=== PATIENT | male | born 1965 | race Two or more races ===

== ENCOUNTER 2020-01-21 14:26 | Inpatient (IN) | payer MEDICARE, OTHER ==
[~2020-01-21] VITALS: Ht 165.1 cm; Wt 81.6 kg
--- NOTE | 2020-01-21 14:35 | NUR ---
MEDIA PRODUCTION SUPPORT MANAGER NOTE- PT ADMITTED 5150 DTS. PT W DX SCHIZOPHRENIA WAS RECENTLY RELEASED FROM [facility], [place] AND FAMILY STATED HE BECAME NON MED COMPLIANT AT HOME WITH ESCALATING PARANOIA AND BEHAVIORS. RECENTLY STATED +SI. TOX SCREEN POS FOR AMPHETAMINES. ON FACE TO FACE ASSESSMENT- PT IS 64 INCHES TALL, 180 POUNDS. HE HAS NKA. PT IS ALERT ORIENTED TO SELF ONLY. CONFUSED ON TIME DATE AND PURPOSE. PT HAS CIRCUMSTANTIAL THINKING, IS GUARDED AND PARANOID. ALTHOUGH HE DENIES SI HI AH VH, PT STATES HE DOES HEAR VOICES THOUGH NOT NOW. ALSO HIS PAPERWORK STATES THAT HE HAD POS SI AND HOLD REFLECTS THIS. CURRENTLY DENIES SI. SKIN INTACT THROUGHOUT. PHOTO TAKEN FOR CHART, AYALA SMITH MD CALLED, ORDERS GIVEN AND COMPLIED WITH. UNIT ORIENTATION DONE PT RIGHTS HANDBOOK GIVEN. ID [id number] APPLIED.
--- NOTE | 2020-01-21 14:40 | NUR ---
RN NOTE- ACCU CHECK -107, MRSA SWAB DONE/ LAB NOTIFIED
[2020-01-21] MEDS ORDERED: LORA-259 PO (14:47)
[2020-01-21] MEDS ORDERED: ALBU18HF2 IH (14:47)
[2020-01-21] MEDS ORDERED: OLAN10TA3 PO (14:47)
[2020-01-21] MEDS ORDERED: POLY15DR40 EACHEYE (14:47)
[2020-01-21] MEDS ORDERED: OLAN20TA3 PO (14:47)
[2020-01-21] MEDS ORDERED: BLOOD SUGAR DIAGNOSTIC 1 EACH STRIP IN ONE (15:00)
[2020-01-21] MEDS ORDERED: ACETAMINOPHEN 325 MG TABLET PO PRN (15:00)
[2020-01-21] MEDS ORDERED: MAGNESIUM HYDROXIDE 30 ML UDC PO PRN (15:00)
--- NOTE | 2020-01-21 15:17 | NUR ---
GPS/RN ADMITTING ORDERS FROM DR SMITH RECEIVED AND CARRIED OUT. DR NOBLES MADE AWARE OF ADMISSION AND WILL SEE PT SHORTLY.
[2020-01-21 15:21] VITALS: BP 101/77
[2020-01-21 15:50] VITALS: BP 101/77
[2020-01-21] MEDS: LORAZEPAM 0.5 MG TABLET PO PRN (15:54)
[2020-01-21] MEDS ORDERED: POLYVINYL ALCOHOL 15 ML BOTTLE EACHEYE PRN (16:00)
[2020-01-21] MEDS ORDERED: ALBUTEROL FS 2.5 MG/0.5 ML VIAL.NEB NEB PRN (19:30)
[2020-01-21 20:00] VITALS: BP 130/70
--- NOTE | 2020-01-21 21:29 | NUR ---
NURSES NOTES: ASPHALT PAVING FOREMAN RECEIVED A CALL FROM RUDOLPH PERRY SISTER OF THIS PATIENT.BEFORE [employer]ING FOREMAN GAVE INFORMATION TO CALLER, ASPHALT PAVING FOREMAN ASKED PERMISSION FROM PATIENT. PATIENT AGREED THAT [employer]HALT PAVING FOREMAN SPEAK TO HIS SISTER -RUDOLPH PERRY [phone]. PER RUDOLPH, PATIENT AND JUNE PERRY (ANOTHER SISTER LISTED PERSON TO NOTIFY) ARE BOTH HOMELESS IF THEY HAVE NOT STAYED WITH HER IN HER HOUSEHOLD.PATIENT-DANIA HAS HAD MULTIPLE HOSPITALIZATIONS BECAUSE OF HIM BEING A DANGER TO HIMSELF, SOON PATIENT IS DISCHARGED TO HOME, AND PATIENT GETS TO FIND HIS WAYS AND HAVE ACCESS TO DRUGS, THAT IS WHEN PATIENT GETS ALL CONFUSED, PACING AT HOME AND NOT BEING HIS USUAL SELF. PER RUDOLPH SHE IS 70 SOMETHING YEARS OLD AND SHE IS EXPRESSING HER CONCERNS TO TAKING CARE OF THE PATIENT. ASPHALT PAVING FOREMAN THEN TOLD HER THAT SHE WILL RELAY THESE CONCERNS TO THE MEDICAL LANGUAGE SPECIALIST AND DOCTOR SO WE CAN FORMULATE A SAFE DISCHARGE PLAN FOR THE PATIENT.
[2020-01-22] MEDS: LORAZEPAM 0.5 MG TABLET PO PRN ×2 (07:55→18:56)
--- NOTE | 2020-01-22 07:55 | NUR ---
RN NOTE- PT AGITATED. ATIVAN 1 MG GIVEN
[2020-01-22 08:00] VITALS: BP 110/70
[2020-01-22 08:07] LABS: TRIGLYCERIDES 111 mg/dL (30-150)
[2020-01-22 08:08] LABS: CALCIUM, SERUM 8.3 mg/dL (8.5-10.1); CHOLESTEROL 140 mg/dL (<200); CREATININE 0.8 mg/dL (0.6-1.3); HDL CHOLESTEROL 36 mg/dL (40-60); LDL 84 mg/dL (0-99); POTASSIUM 3.8 mmol/L (3.5-5.1)
[2020-01-22 08:09] LABS: ALBUMIN 3.1 g/dL (3.4-5.0); BILIRUBIN,TOTAL 0.3 mg/dL (0.2-1.0); TOTAL PROTEIN, SERUM 6.5 g/dL (6.4-8.2)
--- NOTE | 2020-01-22 09:00 | NUR ---
RN NOTE- PT IN BED OOB IN [place] PACING AT TIMES ANXIOUS IRRITABLE. ATIVAN DECREASED SX A BIT PO INTAKE GOOD MED COMPLIANT DR PELLETIER TO SEE DENIES ALL AT PRESENT THOUGH BEHAVIORS SEEM TO POINT TO RESPONDING INTERNAL STIMULUS
[2020-01-22] MEDS: NICOTINE PATCH (21MG) 21 MG PATCH.TD24 TD SCH (10:02)
[2020-01-22] MEDS: OLANZAPINE 5 MG TABLET PO SCH (12:07)
[2020-01-22] MEDS: DIVALPROEX SODIUM 250 MG TABLET.DR PO SCH ×2 (12:07→16:40)
[2020-01-22 16:00] VITALS: BP 132/68
--- NOTE | 2020-01-22 18:57 | NUR ---
RN NOTE- AGITATION. PT C/O ANXIETY. ATIVAN 1 MG GIVEN
[2020-01-22] MEDS: OLANZAPINE 10 MG TABLET PO SCH (19:21)
[2020-01-22 19:35] VITALS: BP 119/63
[2020-01-22] MEDS: TEMAZEPAM 7.5 MG CAPSULE PO PRN (21:13)
--- NOTE | 2020-01-22 21:14 | NUR ---
GPS- RN NOTE: INSOMNIA PATIENT C/O INABILITY TO SLEEP. ADMINISTERED RESTORIL 7.5MG PO ORDERED. WILL CONTINUE TO MONITOR.
[2020-01-23 08:00] VITALS: BP 100/59
[2020-01-23] MEDS: DIVALPROEX SODIUM 250 MG TABLET.DR PO SCH ×3 (08:04→16:52)
[2020-01-23] MEDS: NICOTINE PATCH (21MG) 21 MG PATCH.TD24 TD SCH (08:04)
[2020-01-23] MEDS: OLANZAPINE 5 MG TABLET PO SCH ×2 (08:04→12:33)
--- NOTE | 2020-01-23 11:07 | NUR ---
FAMILY CONTACT: SW contacted pts sister Maria Antonia ([phone]) and Sister Gisele ([phone]) to discuss pts discharge and treatment plan and also to receive collateral information. SW left a voicemail for callback.
--- NOTE | 2020-01-23 11:27 | NUR ---
INITIAL DISCHARGE PLAN: Pt wishes to return home([address]) with his family. SW will coordinate discharge with pts sister Maria Antonia ([phone]). SW will help from a safe and proper discharge in collaboration with .
--- NOTE | 2020-01-23 11:34 | NUR ---
SUBSTANCE ABUSE INTERVENTION: SW provided substance abuse intervention to pt. Pt is paranoid and did not engage in intervention.
[2020-01-23 16:00] VITALS: BP 130/88
[2020-01-23 19:59] VITALS: BP 127/71
[2020-01-23] MEDS: OLANZAPINE 10 MG TABLET PO SCH (20:18)
[2020-01-23] MEDS: TEMAZEPAM 7.5 MG CAPSULE PO PRN (22:08)
--- NOTE | 2020-01-23 22:08 | NUR ---
GPS RN NOTE: INSOMNIA PT. C/O OF UNABLE TO SLEEP. ADMINISTERED RESTORIL 7.5 MG PO PRN ORDERED. WILL CONTINUE TO MONITOR FOR SAFETY AND BEHAVIOR
[2020-01-24 08:00] VITALS: BP 123/77
[2020-01-24] MEDS: OLANZAPINE 5 MG TABLET PO SCH ×3 (09:00→16:08)
[2020-01-24] MEDS: DIVALPROEX SODIUM 250 MG TABLET.DR PO SCH ×3 (09:01→16:08)
[2020-01-24] MEDS: NICOTINE PATCH (21MG) 21 MG PATCH.TD24 TD SCH (09:01)
[2020-01-24] MEDS: LORAZEPAM 0.5 MG TABLET PO PRN (11:05)
--- NOTE | 2020-01-24 11:06 | NUR ---
RN NOT ANXIETY - PT ANXIOUS AND RESTLESS HEARING VOICES ATIVAN 1 MG GIVEN
--- NOTE | 2020-01-24 13:28 | NUR ---
SNF REFERRAL: DEBORAH faxed SNF referral to [facility] ([facility]) [address] [place] [address] P: [phone] for review.
[2020-01-24 16:00] VITALS: BP 128/89
[2020-01-24 19:52] VITALS: BP 118/77
[2020-01-24] MEDS: OLANZAPINE 10 MG TABLET PO SCH (21:28)
[2020-01-25 08:00] VITALS: BP 112/77
--- NOTE | 2020-01-25 08:05 | NUR ---
SNF CONTACT: SW received a call from Maritza, digital coordinator at [facility] ([facility]) [address] [place] [address] P: [phone] stating pt has been accepted to the facility.
[2020-01-25] MEDS: NICOTINE PATCH (21MG) 21 MG PATCH.TD24 TD SCH ×2 (08:25→09:17)
[2020-01-25] MEDS: OLANZAPINE 5 MG TABLET PO SCH ×4 (08:25→16:19)
[2020-01-25] MEDS: DIVALPROEX SODIUM 250 MG TABLET.DR PO SCH ×4 (08:25→16:19)
[2020-01-25] MEDS ORDERED: KEY,NONCONTROL,TO KEEP IN PYXI 1 EA MC ONE (08:28)
--- NOTE | 2020-01-25 09:20 | NUR ---
FAMILY CONTACT: SW received a call from pts sister Maria Antonia ([phone]) requesting an update on pts status. Sister also requested pt be transferred to [facility] Address: [address] [place] [address] once stable for discharge. She states pt has been at that facility before and wishes for him to return as that is a familiar setting for him. SW provided sister with updates on pts psychiatric status and provided her with a list of medications.
--- NOTE | 2020-01-25 09:30 | NUR ---
FACILITY REFERRAL: SW faxed SNF referral to [place] resident care coordinator at [facility] Address: [address] [place] [address] for review.
--- NOTE | 2020-01-25 09:40 | NUR ---
SNF CONTACT: SW received a call from [place] conference center coordinator at [facility] Address: [address] [place] [address] stating pt has been accepted to the facility.
[2020-01-25 16:00] VITALS: BP 135/86
[2020-01-25] MEDS: LORAZEPAM 0.5 MG TABLET PO PRN (17:28)
--- NOTE | 2020-01-25 17:28 | NUR ---
GPS RN note: anxiety patient c/o anxiety and requested his PRN, Ativan. 1mg administered PO as ordered. Will continue to monitor
[2020-01-25 19:31] VITALS: BP 119/85
[2020-01-25] MEDS: OLANZAPINE 10 MG TABLET PO SCH (21:28)
[2020-01-25] MEDS: TEMAZEPAM 7.5 MG CAPSULE PO PRN (22:00)
--- NOTE | 2020-01-25 23:05 | NUR ---
GPS RN NOTE: PT REQUESTED FOR SLEEP MEDICATION DUE TO INSOMNIA. RESTORIL 7.5MG 1 TAB GIVEN PO PRN AT 2200. PT IS CURRENTLY SLEEPING. RESPIRATION EVEN AND UNLABORED WITH EQUAL RISE AND FALL OF THE CHEST. WILL CONTINUE TO MONITOR.
[2020-01-26 08:00] VITALS: BP 106/67
[2020-01-26] MEDS: OLANZAPINE 5 MG TABLET PO SCH ×3 (08:39→16:30)
[2020-01-26] MEDS: NICOTINE PATCH (21MG) 21 MG PATCH.TD24 TD SCH (08:39)
[2020-01-26] MEDS: DIVALPROEX SODIUM 250 MG TABLET.DR PO SCH ×3 (08:40→16:30)
--- NOTE | 2020-01-26 09:00 | NUR ---
RN NOTE- PT ALERT ORIENTED PERSON PLACE TIME PARANOIA PERSISTING PO INTAKE GOOD MED COMPLIANT DENIES ALL DIRECTABLE CAL[employer] PO[employer] EYE CONTACT OOB IN HALLS VISIBLE ON UNIT
[2020-01-26 16:00] VITALS: BP 114/81
[2020-01-26] MEDS: LORAZEPAM 0.5 MG TABLET PO PRN (19:32)
--- NOTE | 2020-01-26 19:33 | NUR ---
GPS RN NOTE: ANXIETY PATIENT VERBALIZED THAT HE IS FEELING ANXIOUS & RESTLESS. PT. REQUESTED TO GET ATIVAN AT THIS TIME. PRN ATIVAN 1 MG PO GIVEN. WILL CONTINUE TO MONITOR FOR EFFECTIVENESS.
[2020-01-26 19:50] VITALS: BP 145/72
[2020-01-26 20:18] VITALS: BP 145/72
[2020-01-26] MEDS: OLANZAPINE 10 MG TABLET PO SCH (21:44)
[2020-01-26] MEDS: TEMAZEPAM 7.5 MG CAPSULE PO PRN (23:33)
--- NOTE | 2020-01-26 23:33 | NUR ---
GPS RN NOTE: INSOMNIA PATIENT VERBALIZED THAT HE IS UNABLE TO SLEEP & REQUESTED TO TAKE SLEEPING MEDICINE. PRN RESTORIL 7.5 MG 1 CAP PO GIVEN. WILL CONTINUE TO MONITOR FOR EFFECTIVENESS.
[2020-01-27 06:50] LABS: BASOPHILS # (AUTO) 0.1 /CMM (0.0-0.2); BASOPHILS % (AUTO) 1.2 % (0.0-2.0); EOSINOPHILS % (AUTO) 1.7 % (0.0-6.0); HEMATOCRIT 39 % (39-51); HEMOGLOBIN 13.3 g/dL (13.5-17.5); LYMPHOCYTES # (AUTO) 1.6 /CMM (0.8-4.8); LYMPHOCYTES % (AUTO) 35.3 % (20.0-44.0); MEAN CORPUSCULAR HGB CONC 34 g/dl (31.0-36.0); MEAN CORPUSCULAR VOLUME 95 fL (80-96); MONOCYTES # (AUTO) 0.6 /CMM (0.1-1.30); MONOCYTES % (AUTO) 13.1 % (2.0-12.0); NEUTROPHILS # (AUTO) 2.3 /CMM (1.8-8.9); NEUTROPHILS % (AUTO) 48.7 % (43.0-81.0); PLATELET COUNT (AUTO) 302 /CMM (150-450); RED BLOOD CELL COUNT(AUTO) 4.16 MIL/uL (4.5-6.0); WHITE BLOOD COUNT (AUTO) 4.6 K/uL (4.3-11.0)
[2020-01-27 07:04] LABS: ALBUMIN 3.1 g/dL (3.4-5.0); BILIRUBIN,TOTAL 0.3 mg/dL (0.2-1.0); CALCIUM, SERUM 8.6 mg/dL (8.5-10.1); CREATININE 0.9 mg/dL (0.6-1.3); POTASSIUM 4.1 mmol/L (3.5-5.1); TOTAL PROTEIN, SERUM 6.8 g/dL (6.4-8.2)
[2020-01-27 08:00] VITALS: BP 109/76
[2020-01-27] MEDS: NICOTINE PATCH (21MG) 21 MG PATCH.TD24 TD SCH (10:17)
[2020-01-27] MEDS: OLANZAPINE 5 MG TABLET PO SCH ×3 (10:18→16:49)
[2020-01-27] MEDS: DIVALPROEX SODIUM 250 MG TABLET.DR PO SCH ×3 (10:18→16:49)
[2020-01-27 16:00] VITALS: BP 120/86
--- NOTE | 2020-01-27 19:02 | NUR ---
QUIET ALL DAY,SLEEPING ON AND OFF.
[2020-01-27 20:00] VITALS: BP 145/86
[2020-01-27] MEDS: LORAZEPAM 0.5 MG TABLET PO PRN (20:02)
--- NOTE | 2020-01-27 20:03 | NUR ---
GPS-RN NOTE: ANXIETY PATIENT IS ANXIOUS, RESTLESS AND HAVING AUDITORY HALLUCINATION. PT STATES HE STILL HEARING VOICES "TO TAKE DRUGS". ADMINISTERED ATIVAN 1MG PO ORDERED. WILL CONTINUE TO MONITOR FOR SAFETY AND BEHAVIOR.
[2020-01-27] MEDS: MAG HYDROX/AL HYDROX/SIMETH 30 ML UDC PO PRN (20:26)
--- NOTE | 2020-01-27 20:26 | NUR ---
GPS-RN NOTE: INDIGESTION MAALOX 30ML PO FOR INDIGESTION. WILL CONTINUE TO MONITOR.
[2020-01-27] MEDS: OLANZAPINE 10 MG TABLET PO SCH (21:02)
[2020-01-27] MEDS: TEMAZEPAM 7.5 MG CAPSULE PO PRN (23:17)
--- NOTE | 2020-01-27 23:18 | NUR ---
GPS RN NOTE: INSOMNIA PATIENT C/O UNABLE TO SLEEP. ADMINISTERED RESTORIL 7.5 MG 1 CAP PO GIVEN. WILL CONTINUE TO MONITOR FOR EFFECTIVENESS.
[2020-01-28 08:00] VITALS: BP 131/67
[2020-01-28] MEDS: DIVALPROEX SODIUM 250 MG TABLET.DR PO SCH ×3 (09:06→16:58)
[2020-01-28] MEDS: OLANZAPINE 5 MG TABLET PO SCH ×3 (09:06→16:58)
[2020-01-28] MEDS: NICOTINE PATCH (21MG) 21 MG PATCH.TD24 TD SCH (09:06)
[2020-01-28 16:00] VITALS: BP 128/78
[2020-01-28] MEDS: MAG HYDROX/AL HYDROX/SIMETH 30 ML UDC PO PRN (20:05)
[2020-01-28] MEDS: LORAZEPAM 0.5 MG TABLET PO PRN (20:05)
--- NOTE | 2020-01-28 20:06 | NUR ---
GPS-RN NOTE: ANXIETY PATIENT IS ANXIOUS AND RESTLESS. ADMINISTERED ATIVAN 1MG PO ORDERED. WILL CONTINUE TO MONITOR FOR SAFETY AND BEHAVIOR.
[2020-01-28 20:23] VITALS: BP 149/91
[2020-01-28] MEDS: OLANZAPINE 10 MG TABLET PO SCH (21:18)
[2020-01-28] MEDS: TEMAZEPAM 7.5 MG CAPSULE PO PRN (21:44)
--- NOTE | 2020-01-28 21:44 | NUR ---
GPS RN NOTE: INSOMNIA PATIENT C/O UNABLE TO SLEEP. ADMINISTERED RESTORIL 7.5 MG 1 CAP PO GIVEN. WILL CONTINUE TO MONITOR FOR EFFECTIVENESS.
[2020-01-29] MEDS: LORAZEPAM 0.5 MG TABLET PO PRN ×2 (02:46→19:43)
--- NOTE | 2020-01-29 02:46 | NUR ---
GPS-RN NOTE: ANXIETY PATIENT IS ANXIOUS AND RESTLESS. ADMINISTERED ATIVAN 1MG PO ORDERED. WILL CONTINUE TO MONITOR FOR SAFETY AND BEHAVIOR.
[2020-01-29 08:00] VITALS: BP 131/89
[2020-01-29] MEDS: DIVALPROEX SODIUM 250 MG TABLET.DR PO SCH ×3 (08:05→16:46)
[2020-01-29] MEDS: NICOTINE PATCH (21MG) 21 MG PATCH.TD24 TD SCH (08:05)
[2020-01-29] MEDS: OLANZAPINE 5 MG TABLET PO SCH ×3 (08:05→16:46)
--- NOTE | 2020-01-29 09:00 | NUR ---
RN NOTE- PT ALERT ORIENTED TO PERSON PLACE TIME AND PURPOSE. NEEDS ATTENDED, INTERACTIVE THOUGH SLEEPY. DENIES SI HI AH VH AT PRESENT MED COMPLIANT PO INTAKE GOOD
[2020-01-29 16:00] VITALS: BP 113/61
[2020-01-29 20:20] VITALS: BP 133/78
[2020-01-29] MEDS: OLANZAPINE 10 MG TABLET PO SCH (21:34)
[2020-01-29] MEDS: MAG HYDROX/AL HYDROX/SIMETH 30 ML UDC PO PRN (23:07)
[2020-01-29] MEDS: TEMAZEPAM 7.5 MG CAPSULE PO PRN (23:08)
--- NOTE | 2020-01-29 23:17 | NUR ---
GPS RN NOTE: PT COMPLAINED OF INDIGESTION AND INSOMNIA, MAALOX 30ML 1 CUP AND RESTORIL 7.5ML 1CAP GIVEN PO PRN ORDERED AT 2308. PT CURRENTLY LAYING ON BED, NO S/S OF DISTRESS. RESPIRATION EVEN AND UNLABORED WITH EQUAL RISE AND FALL OF THE CHEST. WILL CONTINUE TO MONITOR.
[2020-01-30] MEDS: LORAZEPAM 0.5 MG TABLET PO PRN ×3 (01:15→22:53)
--- NOTE | 2020-01-30 01:17 | NUR ---
GPS RN NOTE: PT WOKE UP ANXIOUS, RESTLESS, NEEDY, ASKING FOR ATIVAN FOR ANXIETY. ATIVAN 0.5MG 2TABS GIVEN PO PRN ORDERED AT 0115. PT CURRENTLY LAYING ON BED. WILL CONTINUE TO MONITOR.
[2020-01-30 06:47] LABS: BASOPHILS # (AUTO) 0.1 /CMM (0.0-0.2); BASOPHILS % (AUTO) 1.4 % (0.0-2.0); EOSINOPHILS % (AUTO) 2.2 % (0.0-6.0); HEMATOCRIT 39 % (39-51); HEMOGLOBIN 13.1 g/dL (13.5-17.5); LYMPHOCYTES # (AUTO) 1.5 /CMM (0.8-4.8); LYMPHOCYTES % (AUTO) 33.8 % (20.0-44.0); MEAN CORPUSCULAR HGB CONC 34 g/dl (31.0-36.0); MEAN CORPUSCULAR VOLUME 95 fL (80-96); MONOCYTES # (AUTO) 0.6 /CMM (0.1-1.30); MONOCYTES % (AUTO) 12.2 % (2.0-12.0); NEUTROPHILS # (AUTO) 2.3 /CMM (1.8-8.9); NEUTROPHILS % (AUTO) 50.4 % (43.0-81.0); PLATELET COUNT (AUTO) 272 /CMM (150-450); RED BLOOD CELL COUNT(AUTO) 4.11 MIL/uL (4.5-6.0); WHITE BLOOD COUNT (AUTO) 4.6 K/uL (4.3-11.0)
[2020-01-30 07:32] LABS: CALCIUM, SERUM 8.6 mg/dL (8.5-10.1); CREATININE 0.9 mg/dL (0.6-1.3); POTASSIUM 4.2 mmol/L (3.5-5.1); TOTAL PROTEIN, SERUM 6.4 g/dL (6.4-8.2)
[2020-01-30 08:00] VITALS: BP 110/81
[2020-01-30 08:12] LABS: BILIRUBIN,TOTAL 0.2 mg/dL (0.2-1.0)
[2020-01-30] MEDS: OLANZAPINE 5 MG TABLET PO SCH ×3 (08:29→16:29)
[2020-01-30] MEDS: DIVALPROEX SODIUM 250 MG TABLET.DR PO SCH ×3 (08:29→16:29)
[2020-01-30] MEDS: NICOTINE PATCH (21MG) 21 MG PATCH.TD24 TD SCH (08:29)
[2020-01-30] MEDS: MAG HYDROX/AL HYDROX/SIMETH 30 ML UDC PO PRN (13:54)
--- NOTE | 2020-01-30 13:55 | NUR ---
RN NOTE- PT WITH DYSPEPSIA. MAALOX 30 CC GIVEN AT THIS TIME.
--- NOTE | 2020-01-30 14:02 | NUR ---
FAMILY CONTACT: DEBORAH contacted pts sister Maria Antonia ([phone]) and left a voicemail informing her pt will be discharged tomorrow Wednesday01/31/20 to [facility].
--- NOTE | 2020-01-30 15:55 | NUR ---
medicated for nervousness with ativan.
[2020-01-30 16:00] VITALS: BP 127/85
[2020-01-30 19:59] VITALS: BP 118/55
[2020-01-30] MEDS: OLANZAPINE 10 MG TABLET PO SCH (21:06)
[2020-01-30] MEDS: TEMAZEPAM 7.5 MG CAPSULE PO PRN (21:33)
--- NOTE | 2020-01-30 21:34 | NUR ---
GPS RN NOTE: INSOMNIA PATIENT C/O UNABLE TO SLEEP. ADMINISTERED RESTORIL 7.5 MG 1 CAP PO GIVEN. WILL CONTINUE TO MONITOR FOR EFFECTIVENESS.
--- NOTE | 2020-01-30 22:53 | NUR ---
GPS-RN NOTE: ANXIETY PATIENT C/O FEELING AND REQUESTED FOR ATIVAN. ADMINISTERED ATIVAN 1MG PO ORDERED. WILL CONTINUE TO MONITOR FOR SAFETY AND BEHAVIOR.
[2020-01-31 08:00] VITALS: BP 127/93
[2020-01-31] MEDS: NICOTINE PATCH (21MG) 21 MG PATCH.TD24 TD SCH (09:09)
[2020-01-31] MEDS: DIVALPROEX SODIUM 250 MG TABLET.DR PO SCH ×2 (09:09→12:21)
[2020-01-31] MEDS: OLANZAPINE 5 MG TABLET PO SCH ×2 (09:10→12:21)
[2020-01-31] MEDS: LORAZEPAM 0.5 MG TABLET PO PRN (09:38)
--- NOTE | 2020-01-31 09:39 | NUR ---
DISCHARGE NOTE: Pt will be discharging 4:00pm via [facility] to [facility] ([facility]) [address] [address] . Pts sister Maria Antonia ([phone]) has been notified via text. Pts mood is euthymic with congruent affect. Pt denied visual/auditory hallucinations and denied suicidal/homicidal ideation. Pt is alert and oriented x4 and is appropriately dressed and groomed. Pt will address his substance use with Psychiatrist: Dr. Iris Goel [address] [id number] and Java Scala Developer: Dr. Richard Rahman [address] [phone] . The multidisciplinary exit care form was done, printed, signed, and given to the patient.
--- NOTE | 2020-01-31 09:40 | NUR ---
GPS/RN-NOTES PATIENT STATED " I NEED ATIVAN ". ATIVAN 1MG P.O GIVEN PRN ORDER. WILL CONT. MONITORING FOR SAFETY AND BEHAVIOR.
[2020-01-31] MEDS: MAG HYDROX/AL HYDROX/SIMETH 30 ML UDC PO PRN (10:17)
--- NOTE | 2020-01-31 10:26 | NUR ---
GPS/RN-NOTES PATIENT REQUESTING MAALOX FOR INDIGESTION. MAALOX 30ML GIVEN PRN ORDER.
[2020-01-31 16:00] VITALS: BP 149/96
--- NOTE | 2020-01-31 16:30 | NUR ---
GPS/RN-NOTES PATIENT HAD A DISCHARGE ORDERED FRO DR. PELLETIER,DR. NOBLES MADE AWARE WITH ORDERS.REPORT WAS GIVEN TO OUMAR ( STRIP STAMP STRAIGHTENER).PATIENT DID NOT VERBALIZE SI/HI,DENIES VISUAL AUDITORY HALLUCINATIONS AT THE TIME OF DISCHARGE. PER NOTES PATIENT'S SISTER RUDOLPH MADE AWARE OF THE DISCHARGE.PATIENT LEFT THE UNIT IN STABLE CONDITION A/O X3 AMBULATORY STEADY GAIT. ALL BELONGINGS WAS GIVEN BACK TO THE PATIENT ,MUSK WAS PROVIDED TO THE PATIENT . FIELD CONTROL INSPECTOR BY AMBULANCE VIA [employer] WITH TWO STAFF ASSIST.
--- NOTE | 2020-02-21 09:30 | NUR ---
15 DAY SUBSTANCE ABUSE INTERVENTION: excluded due to D/C to SNF.
== END 2020-01-31 16:30 | DRG 885 ==
LOC: GPS 14:26
PROVIDERS: ADMIT Psychiatry & Neurology Psychosomatic Medicine; ATTEND Internal Medicine
DX: F29 Unspecified psychosis not due to a substance or known physiological condition (principal); E46 Unspecified protein-calorie malnutrition; F41.9 Anxiety disorder, unspecified; E11.9 Type 2 diabetes mellitus without complications; F17.200 Nicotine dependence, unspecified, uncomplicated; F32.9 Major depressive disorder, single episode, unspecified; J44.9 Chronic obstructive pulmonary disease, unspecified; Z73.6 Limitation of activities due to disability; M62.81 Muscle weakness (generalized); F19.10 Other psychoactive substance abuse, uncomplicated; F25.0 Schizoaffective disorder, bipolar type; Z71.6 Tobacco abuse counseling
CPT/HCPCS: 36415; 80053-TC; 80061-TC; 80164-TC; 82962-TC; 85025-TC; 87081-TC